=== PATIENT | born 1990 | race Caucasian/White ===

== ENCOUNTER 2025-03-11 17:39 | Outpatient (CLI) | payer OTHER, SELFPAY ==
[2025-03-11 23:20] LABS: Chlamydia DNA Amplified* NOT DETECTED (No Detected); GC DNA Amplified* NOT DETECTED (No Detected)
[2025-03-13 02:02] LABS: HPV Source Cervix
[2025-03-18 15:49] LABS: Pap Test Digital Imaging Done
== END 2025-03-11 17:40 | disposition home or self-care (01) ==
PROVIDERS: Visit Provider Physician Assistant Medical
DX: E04.1 Nontoxic single thyroid nodule (principal); Z11.51 Encounter for screening for human papillomavirus (HPV); Z11.4 Encounter for screening for human immunodeficiency virus [HIV]; Z11.59 Encounter for screening for other viral diseases
CPT/HCPCS: 80061; 82306; 84443; 86703; 86803; 87491; 87591; 87624; 87625; 88141; 88142; 88175